=== PATIENT | male | born 1965 | race Caucasian/White ===

== ENCOUNTER 2016-08-24 17:00 | Emergency (ER) | payer BC ==
[2016-08-24 15:50] LABS: BASOPHILS 0.1 %; BASOPHILS ABSOLUTE 0.02 10/3/uL (0.0-0.16); EOSINOPHILS 0.2 %; EOSINOPHILS ABSOLUTE 0.03 10/3/uL (0.0-0.53); HEMOGLOBIN 17.5 g/dL (13.6-17.8); IMMATURE GRANULOCYTES 0.2 %; IMMATURE GRANULOCYTES ABSOLUTE 0.03 10/3/uL (0.0-0.11); LYMPHOCYTES 7.8 %; LYMPHOCYTES ABSOLUTE 1.13 10/3/uL (0.67-4.30); MEAN CORPUSCULAR HEMOGLOB 29.6 pg (26.0-34.0); MEAN CORPUSCULAR VOLUME 84.5 fL (80-100); MEAN PLATELET VOLUME 9.4 fL (9.2-13.0); MONOCYTES 4.5 %; MONOCYTES ABSOLUTE 0.65 10/3/uL (0.21-1.20); NEUTROPHILS 87.2 %; NEUTROPHILS ABSOLUTE 12.56 10/3/uL (2.02-8.40); PLATELET COUNT 348 10/3/uL (150-400); RBC DISTRIBUTION WIDTH 12.5 % (12.0-16.0); RED CELL COUNT 5.92 10/6/uL (4.7-6.1)
[2016-08-24 15:53] LABS: ER CBC TAT 0 Hrs 10 Mins; MANUAL DIFF NO %; WHITE BLOOD CELLS 14.4 10/3/uL (4.5-10.5)
[2016-08-24 16:06] LABS: A/G RATIO 1.1 (0.7-1.9); ALBUMIN 4.2 G/DL (3.5-5.0); ALKALINE PHOSPHATASE 69 U/L (45-117); CHLORIDE, SERUM 101 MMOL/L (96-112); CO2 (CARBON DIOXIDE) 33 MMOL/L (24-34); CREATININE 1.17 MG/DL (0.70-1.30); GFR AFRICAN AMERICAN 84 ML/MIN (>=60); GFR NON AFRICAN AMERICAN 73 ML/MIN (>=60); POTASSIUM, SERUM 4.4 MMOL/L (3.5-5.3); SGOT(AST) 18 U/L (5-40); SGPT(ALT) 40 U/L (5-65); SODIUM, SERUM 141 MMOL/L (135-148); TOTAL BILIRUBIN 0.7 MG/DL (0-1.2)
[2016-08-24 16:07] LABS: BUN (BLOOD UREA NITROGEN) 11 MG/DL (6-23); GLOBULIN 3.8 G/DL (2.5-4.1); GLUCOSE, SERUM 111 MG/DL (60-99)
== END 2016-08-24 20:16 | disposition home or self-care (01) ==
LOC: ER 17:00
PROVIDERS: Hospitalist
DX: K52.9 Noninfective gastroenteritis and colitis, unspecified (principal); I10 Essential (primary) hypertension; Z88.0 Allergy status to penicillin
CPT/HCPCS: 74176; 80053; 81001; 83690; 85025; 96374; 96375; 99284; A9270-GY; J1170; J2405; J2550

== ENCOUNTER 2016-08-25 17:02 | Inpatient (IN) | payer BC ==
--- NOTE | ~2016-08-25 | HP ---
History And Physical [address] [id number] [facility] [place]. [address] NAME: TANYA VARGAS : 69 STATUS : ADM IN PAT#: [id number] AGE: 51 ADM/REG DATE : 08/25/16 MR#: [id number] REPORT SERV DATE: 08/25/16 DICTATED BY: PABLO GRIDER DATE: 08/25/16 REPORT STATUS : Draft TRANSCRIBED BY: MODL DATE: 08/25/16 DATE OF ADMISSION: 08/25/2016 CHIEF COMPLAINT: Abdominal pain. The patient sent from Dr. Mcclellan [facility] GI, accompanied by . HISTORY OF PRESENT ILLNESS: The patient is a very pleasant 51-year-old male, drafting designer/writer with past medical history of ADHD and hypertension who presents after having not feeling well approximately Tuesday four days ago, and his belly had worsening pain that has progressed throughout the week up until Tuesday and which he reports that abdominal pain became so bad that it felt even worse than his kidney stones that he has had in the past. The patient had emergency room evaluation. CT was performed, noted for enteritis although the patient does not have any recent GI bouts of discomfort that he can tell. No prior history except for mild diarrhea episodes but no diagnosis of IBS or Crohn's and history. The patient was given IV antibiotics Levaquin and Flagyl, additionally supportive medication with IV Dilaudid, and antiemetics and was sent home and set up for followup. However, the patient had repeated episodes of biliary emesis yesterday and still has continued pain although pain is now rated slightly less than 7/10 that is nonradiating but is in central abdomen. In clinic with Dr. Mcclellan, the patient was reported to be extremely tender. The patient has eversion to food now with pain after eating and concern for possible early ischemia, enteritis workup which may require surgical evaluation was expressed by Dr. Mcclellan and recommended admission for further evaluation. The patient although reports that his belly is now more of a cramping type episode, is still quite tender inappropriately, is able to rest or sit in chair without discomfort but with motion does have grimace formation. No vomiting over the last few hours but has not had a bowel movement in approximately three days, has only drank approximately 3 quarter of a Sprite 16 ounce bottle all day today and 2 cups of water and two sips of water. REVIEW OF SYSTEMS: For additional 10-point review of systems negative except for that noted in the HPI. PAST MEDICAL HISTORY: Of hypertension, ADHD, and kidney stones. SURGICAL HISTORY: No recent surgeries. FAMILY HISTORY: Hypertension, heart disease, colon cancer in family member in the 1960s. SOCIAL HISTORY: Drafting knowledge architect. No smoking but does use smokeless tobacco. 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 ALLERGIES: NOTED FOR PENICILLIN. HOME MEDICATIONS: Strattera and lisinopril. PHYSICAL EXAMINATION: History And Physical [address] [place] [id number] [facility] [place]. [address] NAME: TANYA VARGAS : 69 STATUS : ADM IN [facility]#: [id number] AGE: 51 ADM/REG DATE : 08/25/16 MR#: [id number] REPORT SERV DATE: 08/25/16 DICTATED BY: PABLO GRIDER DATE: 08/25/16 REPORT STATUS : Draft TRANSCRIBED BY: JOHN DATE: 08/25/16 VITAL SIGNS: O2 sats 98%, blood pressure 147/80, temperature 98.5, pulse 96, respirations 20, height 5 feet 11 inches. GENERAL: Mild discomfort, well developed, well nourished. EYES: No scleral icterus. EOMI. ENT: Nares patent. Tongue midline. Mildly dry mucous membranes. NECK: No JVD. Supple. No thyromegaly. CHEST: Equal chest expansion. No increased AP diameter. CV: Regular rate and rhythm. No rubs or gallops. Mild systolic grade 1/2 systolic ejection murmur noted on the left axillary line. No pedal edema. No gross abdominal bruits. RESPIRATORY: Clear to auscultation. No wheezes, rales, or rhonchi, and equal chest expansion. ABDOMEN: Soft, but diffusely tender to deep palpation. Negative rebound. No fluid wave. No pain with leg extension and sitting posture. MUSCULOSKELETAL: Moves all extremities x4. Symmetrical strength upper and lower extremities. NEURO: Alert and oriented. Normal vocal sherry. EOMI and equal strength in upper and lower extremities. PSYCH: Appropriate mood and affect. LABS: No current labs, however, from yesterday WBC count 14.4, H and H 17.5 and 50, platelets 348. CMP grossly within normal limits with mildly elevated glucose of 111, lipase 106. CT abdomen and pelvis; long segment of mid small bowel which appears thickened and the surrounding edema compatible with underlying enteritis, appears to spare the proximal jejunum and distal ilium. Findings are compatible with nonspecific enteritis possibly related to inflammatory bowel disease. The patient has history of this but no evidence of abscess or perforation seen, no associated bowel obstruction seen at this time. Small ascites through abdomen and pelvis, colonic diverticulosis without CT evidence of acute diverticulitis, atelectatic changes at lung bases. ASSESSMENT AND PLAN: 1. Abdominal pain with enteritis. 2. Hypertension. 3. Attention-deficit hyperactivity disorder. 4. Leukocytosis. 5. Volume depletion. 6. Reflux. PLAN: 1. For abdominal pain with enteritis, questionable ischemia to rule out discussed with Dr. Mcclellan concern for ischemia with atypical CT presentation and pain with eating. We will order lactate serially and CTA for evaluation. Dr. Mcclellan is requesting surgical evaluation, family requesting Dr. Lopez. For atypical abdominal pain presentation as disproportionate, we will monitor on telemetry. IV antibiotics as the patient not tolerating p.o. antibiotics currently with Flagyl and Levaquin. Additionally IV fluids and supportive medications with antiemetics and pain medications. 2. Hypertension on KYLE inhibitor. 3. ADHD. Continue home medications. History And Physical [address] [address] NAME: TANYA VARGAS : 69 STATUS : ADM IN [facility]#: [id number] AGE: 51 ADM/REG DATE : 08/25/16 MR#: [id number] REPORT SERV DATE: 08/25/16 DICTATED BY: PABLO GRIDER DATE: 08/25/16 REPORT STATUS : Draft TRANSCRIBED BY: MODL DATE: 08/25/16 4. Leukocytosis, treat underlying abdominal pain with enteritis, likely reactive. We will check stool studies. 5. Volume depletion. Has had decreased p.o. x48 hours. We will give IV fluid as the patient to get IV contrast for abdominal workup. 6. Reflux, PPI. All questions answered to the patient and family. Disposition pending findings from above. DDN/MODL Pablo Grider MD / [id number] CC: MD Alvino Brito M.D.
--- NOTE | ~2016-08-25 | DS ---
Discharge Summary [facility] [address] [facility] [place]. [address] NAME: TANYA VARGAS : 69 STATUS : DIS Kristina PAT#: [id number] AGE: 51 ADM/REG DATE : 08/25/16 MR#: [id number] REPORT SERV DATE: 08/27/16 DICTATED BY: JR. CHOPRA WILLIAM JOHN DATE: 08/27/16 REPORT STATUS : Draft TRANSCRIBED BY: MODL DATE: 08/27/16 ADMISSION DATE: 08/25/2016 DISCHARGE DATE: 08/27/2016 DISCHARGE DIAGNOSES: Include: 1. Abdominal pain with enteritis. 2. Gastroesophageal reflux disease. 3. Hypertension. 4. History of attention-deficit hyperactivity disorder. 5. Volume depletion. OPERATIONS/PROCEDURES AND TREATMENTS: Include: 1. C difficile check, which was not complete due to solid stools. 2. Cryptosporidium was negative. Giardia antigen negative. Stool leukocyte 0-5. 3. CT of the abdomen and pelvis showed persistent inflammation of bowel loops with ascites. All major vessels were identified, nonspecific localized small bowel enteritis with increased edema and increased fluid were seen. CONSULTING PHYSICIAN: Include Rayray RAMIREZ. DISCHARGE MEDICATIONS: Include: 1. Levaquin 750 mg orally daily for five days. 2. Flagyl 500 mg every eight hours for five days. 3. Strattera 60 mg orally daily. 4. Lisinopril 20 mg orally daily. 5. Protonix 40 mg orally daily. HOSPITAL COURSE: The patient is a 51-year-old male, presented to [facility] on 08/25/2016, after not feeling well for approximately four to five days with worsening abdominal pain. The patient went to [facility] GI. CT was performed with finding of enteritis. The patient was seen in the emergency room and was given IV antibiotics followed by oral and analgesics, was set up for followup; however, he had repeated biliary emesis, followed up with the [facility] with an extremely sore abdomen and was therefore directed to [facility] for admission. Initial workup at [facility] showed a temperature 98.5, blood pressure 147/80, heart rate 96, respiratory rate of 20. In general, mild discomfort. Abdominal exam was soft, but diffusely tender to deep palpation. There is no guarding, no fluid wave. The patient was admitted to the Clinical Decision Unit. He was placed on bowel rest, IV fluids, and analgesics. He had stool studies, which are detailed above. The patient's pain progressively improved. He took no pain medication for the last 24 hours of hospitalization. He was tolerating a regular diet and is felt to be stable for discharge. If Gastroenterology agrees, we will discharge the patient today, 08/27/2016. The patient will be discharged to complete a seven-day course of Levaquin and Flagyl. He will also be on proton pump inhibitor. He will follow up with Gastroenterology as well as primary care physician, Dr. Alvino Saunders. Discharge Summary [address] [address] NAME: TANYA VARGAS : 69 STATUS : DIS Kristina PAT#: [id number] AGE: 51 ADM/REG DATE : 08/25/16 MR#: [id number] REPORT SERV DATE: 08/27/16 DICTATED BY: JR. CHOPRA WILLIAM JOHN DATE: 08/27/16 REPORT STATUS : Draft TRANSCRIBED BY: JOHN DATE: 08/27/16 Regarding hypertension, the patient was persistently hypertensive throughout the hospitalization. He is on lisinopril 10 mg orally daily, which will be increased to 20 mg at discharge. As the volume depletion, this resolved with IV fluid hydration. For discharge exam and laboratory, please see daily progress note. DISCHARGE DIET: Low residue. DISCHARGE ACTIVITY: As tolerated. This discharge took less than 30 minutes. WElijahF/JOHN Andrews Chopra Jr, MD / [id number] CC: Andrews Chopra Jr, MD Patrick Rhyne, M.D.
[2016-08-25 20:22] LABS: BASOPHILS 0.2 %; BASOPHILS ABSOLUTE 0.02 10/3/uL (0.0-0.16); EOSINOPHILS 0.3 %; EOSINOPHILS ABSOLUTE 0.03 10/3/uL (0.0-0.53); HEMATOCRIT 47.8 % (40.0-51.0); HEMOGLOBIN 15.8 g/dL (13.6-17.8); IMMATURE GRANULOCYTES 0.2 %; IMMATURE GRANULOCYTES ABSOLUTE 0.02 10/3/uL (0.0-0.11); LYMPHOCYTES 18.6 %; LYMPHOCYTES ABSOLUTE 2.13 10/3/uL (0.67-4.30); MEAN CORPUSCULAR HEMOGLOB 28.9 pg (26.0-34.0); MEAN PLATELET VOLUME 9.5 fL (9.2-13.0); MONOCYTES 8.4 %; MONOCYTES ABSOLUTE 0.97 10/3/uL (0.21-1.20); NEUTROPHILS 72.3 %; NEUTROPHILS ABSOLUTE 8.31 10/3/uL (2.02-8.40); PLATELET COUNT 304 10/3/uL (150-400); RBC DISTRIBUTION WIDTH 12.9 % (12.0-16.0); RED CELL COUNT 5.46 10/6/uL (4.7-6.1); WHITE BLOOD CELLS 11.5 10/3/uL (4.5-10.5)
[2016-08-25 20:25] LABS: MANUAL DIFF NO %; MEAN CORPUS HGB CONC 33.1 g/dL (32.0-36.0); MEAN CORPUSCULAR VOLUME 87.5 fL (80-100)
[2016-08-25 20:35] LABS: A/G RATIO 0.9 (0.7-1.9); ALBUMIN 3.4 G/DL (3.5-5.0); CALCIUM, SERUM 8.5 MG/DL (8.5-10.4); CHLORIDE, SERUM 105 MMOL/L (96-112); CO2 (CARBON DIOXIDE) 29 MMOL/L (24-34); CREATININE 1.42 MG/DL (0.70-1.30); GFR AFRICAN AMERICAN 67 ML/MIN (>=60); GFR NON AFRICAN AMERICAN 58 ML/MIN (>=60); GLOBULIN 3.6 G/DL (2.5-4.1); GLUCOSE, SERUM 90 MG/DL (60-99); POTASSIUM, SERUM 3.9 MMOL/L (3.5-5.3); SGOT(AST) 12 U/L (5-40); SGPT(ALT) 29 U/L (5-65); SODIUM, SERUM 144 MMOL/L (135-148); TOTAL BILIRUBIN 0.6 MG/DL (0-1.2)
[2016-08-25 20:36] LABS: ALKALINE PHOSPHATASE 54 U/L (45-117); BUN (BLOOD UREA NITROGEN) 20 MG/DL (6-23)
[2016-08-26 03:42] LABS: BASOPHILS 0.2 %; BASOPHILS ABSOLUTE 0.02 10/3/uL (0.0-0.16); EOSINOPHILS 0.6 %; EOSINOPHILS ABSOLUTE 0.06 10/3/uL (0.0-0.53); HEMATOCRIT 44.6 % (40.0-51.0); HEMOGLOBIN 14.6 g/dL (13.6-17.8); IMMATURE GRANULOCYTES 0.2 %; IMMATURE GRANULOCYTES ABSOLUTE 0.02 10/3/uL (0.0-0.11); LYMPHOCYTES 17.5 %; LYMPHOCYTES ABSOLUTE 1.77 10/3/uL (0.67-4.30); MEAN CORPUS HGB CONC 32.7 g/dL (32.0-36.0); MEAN CORPUSCULAR HEMOGLOB 28.6 pg (26.0-34.0); MEAN CORPUSCULAR VOLUME 87.5 fL (80-100); MEAN PLATELET VOLUME 9.3 fL (9.2-13.0); MONOCYTES 7.6 %; MONOCYTES ABSOLUTE 0.77 10/3/uL (0.21-1.20); NEUTROPHILS 73.9 %; NEUTROPHILS ABSOLUTE 7.46 10/3/uL (2.02-8.40); PLATELET COUNT 270 10/3/uL (150-400); RBC DISTRIBUTION WIDTH 12.9 % (12.0-16.0); WHITE BLOOD CELLS 10.1 10/3/uL (4.5-10.5)
[2016-08-26 03:45] LABS: MANUAL DIFF NO %
[2016-08-26 03:59] LABS: BUN (BLOOD UREA NITROGEN) 21 MG/DL (6-23); CALCIUM, SERUM 8.2 MG/DL (8.5-10.4); CHLORIDE, SERUM 104 MMOL/L (96-112); CO2 (CARBON DIOXIDE) 28 MMOL/L (24-34); CREATININE 1.28 MG/DL (0.70-1.30); GFR AFRICAN AMERICAN 76 ML/MIN (>=60); GFR NON AFRICAN AMERICAN 65 ML/MIN (>=60); GLUCOSE, SERUM 104 MG/DL (60-99); POTASSIUM, SERUM 3.9 MMOL/L (3.5-5.3); SODIUM, SERUM 141 MMOL/L (135-148)
[2016-08-26] MEDS ORDERED: I-PRIN200 MG PO (10:27)
[2016-08-26] MEDS ORDERED: PRIN10 PO (10:27)
[2016-08-26] MEDS ORDERED: STRATT PO (10:30)
[2016-08-27 04:27] LABS: BASOPHILS 0.4 %; BASOPHILS ABSOLUTE 0.03 10/3/uL (0.0-0.16); EOSINOPHILS 2.1 %; EOSINOPHILS ABSOLUTE 0.16 10/3/uL (0.0-0.53); HEMATOCRIT 40.2 % (40.0-51.0); HEMOGLOBIN 13.5 g/dL (13.6-17.8); IMMATURE GRANULOCYTES 0.1 %; IMMATURE GRANULOCYTES ABSOLUTE 0.01 10/3/uL (0.0-0.11); LYMPHOCYTES 28.1 %; LYMPHOCYTES ABSOLUTE 2.16 10/3/uL (0.67-4.30); MEAN CORPUS HGB CONC 33.6 g/dL (32.0-36.0); MEAN CORPUSCULAR HEMOGLOB 29.1 pg (26.0-34.0); MEAN CORPUSCULAR VOLUME 86.6 fL (80-100); MEAN PLATELET VOLUME 9.3 fL (9.2-13.0); MONOCYTES 8.2 %; MONOCYTES ABSOLUTE 0.63 10/3/uL (0.21-1.20); NEUTROPHILS 61.1 %; PLATELET COUNT 255 10/3/uL (150-400); RBC DISTRIBUTION WIDTH 12.7 % (12.0-16.0); RED CELL COUNT 4.64 10/6/uL (4.7-6.1); WHITE BLOOD CELLS 7.7 10/3/uL (4.5-10.5)
[2016-08-27 04:29] LABS: MANUAL DIFF NO %
[2016-08-27 04:42] LABS: ALKALINE PHOSPHATASE 41 U/L (45-117); BUN (BLOOD UREA NITROGEN) 22 MG/DL (6-23); CALCIUM, SERUM 8.1 MG/DL (8.5-10.4); CHLORIDE, SERUM 108 MMOL/L (96-112); CO2 (CARBON DIOXIDE) 31 MMOL/L (24-34); CREATININE 1.16 MG/DL (0.70-1.30); DIRECT BILIRUBIN < 0.1 MG/DL (0.0-0.4); GFR AFRICAN AMERICAN 85 ML/MIN (>=60); GFR NON AFRICAN AMERICAN 74 ML/MIN (>=60); GLUCOSE, SERUM 94 MG/DL (60-99); INDIRECT BILIRUBIN(NOT ORDER) 0.4 MG/DL (0.1-0.9); POTASSIUM, SERUM 3.6 MMOL/L (3.5-5.3); SGOT(AST) 14 U/L (5-40); SGPT(ALT) 24 U/L (5-65); SODIUM, SERUM 144 MMOL/L (135-148); TOTAL BILIRUBIN 0.5 MG/DL (0-1.2)
[2016-08-27] MEDS ORDERED: LEVAQUIN750 MG PO (13:41)
[2016-08-27] MEDS ORDERED: PRIN20 PO (13:41)
[2016-08-27] MEDS ORDERED: FLAG500TAB PO (13:43)
== END 2016-08-27 13:50 | disposition home or self-care (01) | DRG 392 ==
LOC: CDU1 17:02
PROVIDERS: Nurse Practitioner Family; Student in an Organized Health Care Education/Training Program
DX: A09 Infectious gastroenteritis and colitis, unspecified (principal); I10 Essential (primary) hypertension; E86.0 Dehydration; K21.9 Gastro-esophageal reflux disease without esophagitis; F90.9 Attention-deficit hyperactivity disorder, unspecified type; Z88.0 Allergy status to penicillin
CPT/HCPCS: 74176; 74177; 80048; 80053; 80076; 81001; 83605; 83690; 83735; 84100; 85025; 85652; 86140; 87045; 87046; 87046-59; 87328; 87329; 87493; 87493-59; 87899; 87899-59; 89055; 96374; 96375; 96376; 99284; A9270-GY; C9113; G0378; J0360; J1170; J1885; J1956; J2405; J2550